=== PATIENT | female | born 1990 | race Caucasian/White ===

== ENCOUNTER 2016-11-01 13:22 | Emergency (ER) | payer OTHER ==
[~2016-11-01] VITALS: Ht 170.2 cm; Wt 77.0 kg
[2016-11-01 13:24] VITALS: Ht 170.2 cm; Wt 77.0 kg
[2016-11-01] MEDS ORDERED: morphine 4 MG/ML VIAL IV STA ×2 (13:45→15:11)
[2016-11-01] MEDS ORDERED: ONDANSETRON 4 MG INJ IV STA (13:45)
[2016-11-01 14:21] LABS: ADD SCAN DIFF NO
[2016-11-01 14:28] LABS: ADD UMIC YES; BASOPHILS % 0.4 % (0.0-2.0); EOSINOPHILS % 0.6 % (0.0-7.0); HEMATOCRIT 34.5 % (37.0-47.0); HEMOGLOBIN 12.1 g/dl (12.0-16.0); LYMPHOCYTES # 2.8 10^3/ul (0.8-2.9); LYMPHOCYTES % 40.7 % (15.0-51.0); MEAN CORPUSCULAR HEMOGLOBIN 29.1 pg (29.0-33.0); MEAN CORPUSCULAR HGB CONC 35.1 g/dl (32.0-37.0); MEAN CORPUSCULAR VOLUME 82.9 fl (82.0-101.0); MEAN PLATELET VOLUME 9.2 fl (7.4-10.4); MONOCYTE # 0.4 10^3/ul (0.3-0.9); MONOCYTES % 5.5 % (0.0-11.0); NEUTROPHIL # 3.6 10^3/ul (1.6-7.5); NEUTROPHILS % 52.5 % (39.0-77.0); PLATELET COUNT 311 10^3/UL (140-415); RED BLOOD COUNT 4.16 10^6/ul (4.20-5.40); URINE BILIRUBIN (Dip) NEGATIVE (NEGATIVE); URINE BLOOD (Dip) 3+ (NEGATIVE); URINE COLOR LT. RED (YELLOW); URINE GLUCOSE (Dip) NEGATIVE (NEGATIVE); URINE KETONES (Dip) NEGATIVE (NEGATIVE); URINE LEUKOCYTE ESTERASE (Dip) TRACE (NEGATIVE); URINE NITRITE (Dip) NEGATIVE (NEGATIVE); URINE TOTAL PROTEIN (Dip) NEGATIVE (NEGATIVE); URINE UROBILINOGEN (Dip) 0.2 E.U./dL (0.1-1.0); WHITE BLOOD COUNT 6.9 10^3/ul (4.8-10.8)
[2016-11-01 14:39] LABS: ALBUMIN/GLOBULIN RATIO 1.37; BILIRUBIN,INDIRECT 0.7 mg/dl (0-1.1); BILIRUBIN,TOTAL 0.7 mg/dl (0.2-1.3); CALCIUM 9.4 mg/dl (8.4-10.2); CREATININE 0.53 mg/dl (0.44-1.00); POTASSIUM 3.9 mmol/L (3.5-5.1); TOTAL PROTEIN 6.9 g/dl (6.1-8.1)
[2016-11-01 14:49] LABS: BACTERIA,URINE MANY; URINE RBCS >200 /HPF (0)
--- NOTE | 2016-11-01 15:12 | RADRPT ---
PROCEDURE: US Pelvis. CLINICAL INDICATION: Pelvic pain TECHNIQUE: Multiple sonographic images of the pelvis were obtained utilizing a transabdominal and endovaginal technique. The images were reviewed on a PACS workstation. COMPARISON: None. FINDINGS: The uterus is anteverted and measures 6.6 x 4.2 x 3.2 cm. The endometrial echo complex is normal and measures 7-mm. There is no evidence for free fluid. The right ovary has a normal echotexture and me asures 4.2 x 2.5 x 2.4 cm . An incidental 1 cm of ovarian dermoid may be present. The left ovary molina s a normal echotexture and measures 1.9 x 1.6 x 1.1 cm. No adnexal masses are noted. There are no findings of ovarian torsion. Normal follicular activity is present. IMPRESSION: Unremarkable exam. RPTAT: EE .Alyson Syed MD, Date Time Electronically viewed and signed by .Alyson Syed MD, on 11/01/2016 15:12 .F/
[2016-11-01 15:19] VITALS: BP 103/59; PULSE 66; RESP 20
[2016-11-01] MEDS ORDERED: KETOROLAC 30 MG INJ IV STA (15:21)
--- NOTE | 2016-11-01 16:10 | RADRPT ---
PROCEDURE: CT Abdomen and Pelvis without contrast. CLINICAL INDICATION: Abdominal pain TECHNIQUE: CT scan of the abdomen and pelvis was performed on a multidetector high-resolution CT s canner without intravenous contrast. Coronal and sagittal reformatted images were obtained from the axial source images. Images were reviewed on a high-resolution PACS workstation. The total exam CTD I equals 10mGy and the total exam DLP equals 595mGy-cm. One or more of the following dose reduction techniques were used: Automated exposure control, Adjustment of the mA and/or kV according to patien t size, and/or use of iterative reconstruction technique. COMPARISON: None. FINDINGS: Evaluation of the solid organs is limited given the lack of intravenous contrast administration. The lung bases are clear. The liver, pancreas, spleen, and adrenals are grossly unremarkable. No focal pericholecystic inflammatory changes. No hydronephrosis. Multiple nonobstructing right renal stones are seen with a largest measuring 5 m m. No left renal stones identified. No bowel obstruction. Normal-caliber appendix. No significant retroperitoneal lymphadenopathy or evidence of pneumoperitoneum. Small volume pelvic free fluid. IMPRESSION: Multiple nonobstructing right renal stones are seen with the largest measuring 5 mm. Small amount of pelvic free fluid. No evidence of bowel obstruction. Normal-caliber appendix. RPTAT: AA .Emil Harris MD, Date Time Electronically viewed and signed by .Emil Harris MD, on 11/01/2016 16:10 .T/
[2016-11-01] MEDS ORDERED: NAPR-260 PO (16:38)
[2016-11-01] MEDS ORDERED: CIPR500T4 PO (16:38)
[2016-11-01] MEDS ORDERED: TAMS-14 PO (16:38)
--- NOTE | 2016-11-01 17:25 | ERD ---
ER Documentation Chief Complaint Date/Time DATE: 11/01/16 TIME: 17:21 Chief Complaint sudden onset rlq abdominal pain since this morning, last lmp yesterday HPI 25-year-old female patient with no significant past medical history presents the ED complaining of right lower quadrant abdominal pain that started this morning. States that she has had a previous right ovarian cyst but this feels different and it feels like a stabbing type of pain. Reports that she is nauseous but denies any vomiting. States that she has normal daily bowel movements. Denies any diarrhea. Denies any chest pain, shortness of breath, wheezing. States that her last menses started last night. Reports that she has some slight dysuria but denies any urgency, frequency, hematuria. ROS All systems reviewed and are negative except as per history of present illness. Medications Home Meds Active Scripts Tamsulosin Hcl* (Flomax*) 0.4 Mg Cap.er.24h, 0.4 MG PO QPM, #10 CAP Prov:LEONELA BARR PA-C 11/01/16 Ciprofloxacin Hcl* (Ciprofloxacin Hcl*) 500 Mg Tablet, 500 MG PO BID for 7 Days , TAB Prov:LEONELA BARR PA-C 11/01/16 Naproxen* (Naprosyn*) 500 Mg Tablet, 500 MG PO BID Y for PAIN AND/OR INFLAMMATION, #30 TAB Prov:ELONELA BARR PA-C 11/01/16 Allergies Allergies: Coded Allergies: No Known Allergy (Unverified , 11/01/16) PMhx/Soc Medical and Surgical Hx: pt denies Medical Hx, pt denies Surgical Hx Hx Alcohol Use: Yes Hx Substance Use: No Hx Tobacco Use: No Smoking Status: Never smoker Physical Exam Vitals Vital Signs Date Time Temp Pulse Resp B/P Pulse Ox O2 Delivery O2 Flow Rate FiO2 11/01/16 15:19 66 20 103/59 Room Air 11/01/16 13:24 97.8 87 18 147/71 99 Physical Exam Const: Jev-sby-knhpriphr, well-nourished. In no acute distress. Head: Atraumatic, normocephalic Eyes: Normal Conjunctiva without injection. No purulent discharge. ENT: Normal external ear, nose. Moist oropharynx without tonsillar exudates. Non -erythematous pharynx. Uvula midline. No drooling. No trismus. Neck: No cervical midline tenderness. Full range of motion. No meningismus. No cervical lymphadenopathy. No JVD. Resp: Clear to auscultation bilaterally. No wheezing, rhonchi, rales, or crackles. No accessory muscle use. No retractions. Cardio: Regular rate and rhythm. No murmurs, rubs or gallops. Abd: Soft, diffuse tenderness of the right and left lower quadrants, non distended. Normal bowel sounds. No palpable masses. No rebound tenderness. No guarding. Negative McBurney's point. Negative psoas sign. Negative obturator sign. Skin: No petechiae or rashes Back: No midline tenderness. No CVA tenderness. Ext: No cyanosis, or edema. Neur: Awake and alert. Normal gait. Normal coordination. Psych: Normal Mood and Affect Result Diagram: 11/01/16 1357 11/01/16 1357 Results 24 hrs Laboratory Tests Test 11/01/16 13:57 White Blood Count 6.910^3/ul Red Blood Count 4.1610^6/ul Hemoglobin 12.1g/dl Hematocrit 34.5% Mean Corpuscular Volume 82.9fl Mean Corpuscular Hemoglobin 29.1pg Mean Corpuscular Hemoglobin Concent 35.1g/dl Red Cell Distribution Width 12.0% Platelet Count 34921^3/UL Mean Platelet Volume 9.2fl Neutrophils % 52.5% Lymphocytes % 40.7% Monocytes % 5.5% Eosinophils % 0.6% Basophils % 0.4% Nucleated Red Blood Cells % 0.0/100WBC Neutrophils # 3.610^3/ul Lymphocytes # 2.810^3/ul Monocytes # 0.410^3/ul Eosinophils # 0.010^3/ul Basophils # 0.010^3/ul Nucleated Red Blood Cells # 0.010^3/ul Urine Color LT. RED Urine Clarity CLEAR Urine pH 7.0 Urine Specific [place] 1.010 Urine Ketones NEGATIVE Urine Nitrite NEGATIVE Urine Bilirubin NEGATIVE Urine Urobilinogen 0.2 E.U./dL Urine Leukocyte Esterase TRACE Urine Microscopic RBC >200/HPF Urine Microscopic WBC >50/HPF Urine Epithelial Cells FEW Urine Bacteria MANY Urine Hemoglobin 3+ Urine Glucose NEGATIVE% Urine Total Protein NEGATIVE Sodium Level 139mmol/L Potassium Level 3.9mmol/L Chloride Level 107mmol/L Carbon Dioxide Level 23mmol/L Anion Gap 13 Blood Urea Nitrogen 9mg/dl Creatinine 0.53mg/dl Glucose Level 108mg/dl Calcium Level 9.4mg/dl Total Bilirubin 0.7mg/dl Direct Bilirubin 0.00mg/dl Indirect Bilirubin 0.7mg/dl Aspartate Amino Transf (AST/SGOT) 20IU/L Alanine Aminotransferase (ALT/SGPT) 27IU/L Alkaline Phosphatase 43IU/L Total Protein 6.9g/dl Albumin 4.0g/dl Globulin 2.90g/dl Albumin/Globulin Ratio 1.37 Lipase 82U/L Current Medications Medications (Trade) Dose Ordered Sig/Karon Route PRN Reason Start Time Stop Time Status Last Admin Dose Admin Morphine Sulfate (morphine) 4 mg ONCE STAT IV 11/01/16 13:45 11/01/16 13:50 DC 11/01/16 14:43 Ondansetron HCl (Zofran Inj) 4 mg ONCE STAT IV 11/01/16 13:45 11/01/16 13:50 DC 11/01/16 14:43 Morphine Sulfate (morphine) 3 mg ONCE STAT IV 11/01/16 15:11 11/01/16 15:12 Cancel Ketorolac Tromethamine (Toradol) 30 mg ONCE STAT IV 11/01/16 15:21 11/01/16 15:22 DC 11/01/16 15:31 Procedures/MDM This is a 25-year-old female patient with a past medical history of a right cystectomy presents to the ED complaining of diffuse lower abdominal pain associated with dysuria. Patient is afebrile and nontoxic-appearing. Patient has normal vital signs. Patient is in distress due to pain. Patient was further worked up with CBC, CMP, lipase, UA, urine , CT of abdomen and pelvis. Patient's pain and symptoms have improved after treatment with morphine , Ketoralac, normal saline, Zofran. CBC: No leukocytosis. No e/o of systemic infection. No e/o anemia. CMP: No e/o severe acidosis, alkalosis, renal failure, diabetic ketoacidosis, liver disease Lipase within normal limits. Urine: trace leukocyte esterase with > WBC 50, no nitrites, no hematuria. Urine : negative PROCEDURE: CT Abdomen and Pelvis without contrast. CLINICAL INDICATION: Abdominal pain TECHNIQUE: CT scan of the abdomen and pelvis was performed on a multidetector high-resolution CT scanner without intravenous contrast. Coronal and sagittal reformatted images were obtained from the axial source images. Images were reviewed on a high-resolution PACS workstation. The total exam CTDI equals 10mGy and the total exam DLP equals 595mGy-cm. One or more of the following dose reduction techniques were used: Automated exposure control, Adjustment of the mA and/or kV according to patient size, and/or use of iterative reconstruction technique. COMPARISON: None. FINDINGS: Evaluation of the solid organs is limited given the lack of intravenous contrast administration. The lung bases are clear. The liver, pancreas, spleen, and adrenals are grossly unremarkable. No focal pericholecystic inflammatory changes. No hydronephrosis. Multiple nonobstructing right renal stones are seen with a largest measuring 5 mm. No left renal stones identified. No bowel obstruction. Normal-caliber appendix. No significant retroperitoneal lymphadenopathy or evidence of pneumoperitoneum. Small volume pelvic free fluid. IMPRESSION: Multiple nonobstructing right renal stones are seen with the largest measuring 5 mm. Small amount of pelvic free fluid. No evidence of bowel obstruction. Normal-caliber appendix. PROCEDURE: US Pelvis. CLINICAL INDICATION: Pelvic pain TECHNIQUE: Multiple sonographic images of the pelvis were obtained utilizing a transabdominal and endovaginal technique. The images were reviewed on a PACS workstation. COMPARISON: None. FINDINGS: The uterus is anteverted and measures 6.6 x 4.2 x 3.2 cm. The endometrial echo complex is normal and measures 7-mm. There is no evidence for free fluid. The right ovary has a normal echotexture and measures 4.2 x 2.5 x 2.4 cm . An incidental 1 cm of ovarian dermoid may be present. The left ovary has a normal echotexture and measures 1.9 x 1.6 x 1.1 cm. No adnexal masses are noted. There are no findings of ovarian torsion. Normal follicular activity is present. IMPRESSION: Unremarkable exam. Patient was noted to have multiple kidney stones in her right kidney. Low suspicion for septic stone. A differential diagnosis considered includes but is not limited to gastritis, GERD, peptic ulcer disease, cholecystitis, choledocholithiasis, cholangitis, pancreatitis, appendicitis, bowel obstruction , ileus, volvulus, nephrolithiasis, pyelonephritis, hepatitis, perforated viscus , diverticulitis, abdominal hernia, acute abdomen, mesenteric ischemia or other emergent conditions. 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 Instructed patient to return to the ED sooner for any worsening symptoms. Patient's questions were answered. Patient understood and agreed with discharge plan. Patient discharged stable. Departure Diagnosis: Primary Impression: Kidney stone on right side Condition: Stable Patient Instructions: Urinary Tract Infections in Women, Kidney Stone W/ Colic Referrals: COMMUNITY CLINICS YOU HAVE RECEIVED A MEDICAL SCREENING EXAM AND THE RESULTS INDICATE THAT YOU DO NOT HAVE A CONDITION THAT REQUIRES URGENT TREATMENT IN THE EMERGENCY DEPARTMENT. FURTHER EVALUATION AND TREATMENT OF YOUR CONDITION CAN WAIT UNTIL YOU ARE SEEN IN YOUR DOCTORS OFFICE WITHIN THE NEXT 1-2 DAYS. IT IS YOUR RESPONSIBILITY TO MAKE AN APPOINTMENT FOR FOLOW-UP CARE. IF YOU HAVE A PRIMARY DOCTOR --you should call your primary doctor and schedule an appointment IF YOU DO NOT HAVE A PRIMARY DOCTOR YOU CAN CALL OUR PHYSICIAN REFERRAL HOTLINE AT IF YOU CAN NOT AFFORD TO SEE A PHYSICIAN YOU CAN CHOSE FROM THE FOLLOWING [facility] [address] [facility]. [facility] [address] [facility] [facility] [address] [facility] [facility] [address] [facility] [facility] [address] [facility]. [facility]. [address] [facility]. [facility] YOU HAVE RECEIVED A MEDICAL SCREENING EXAM AND THE RESULTS INDICATE THAT YOU DO NOT HAVE A CONDITION THAT REQUIRES URGENT TREATMENT IN THE EMERGENCY DEPARTMENT. FURTHER EVALUATION AND TREATMENT OF YOUR CONDITION CAN WAIT UNTIL YOU ARE SEEN IN YOUR DOCTORS OFFICE WITHIN THE NEXT 1-2 DAYS. IT IS YOUR RESPONSIBILITY TO MAKE AN APPOINTMENT FOR FOLOW-UP CARE. IF YOU HAVE A PRIMARY DOCTOR --you should call your primary doctor and schedule and appointment IF YOU DO NOT HAVE A PRIMARY DOCTOR YOU CAN CALL OUR PHYSICIAN REFERRAL HOTLINE AT . IF YOU CAN NOT AFFORD TO SEE A PHYSICIAN YOU CAN CHOSE FROM THE FOLLOWING [facility] INSTITUTIONS: [facility] [address] [place] [address] [facility] [address] [place] [address] [facility] [address] [place] [address] [facility] URGENT CARE/SPECIALTIES Additional Instructions: Call your primary care doctor TOMORROW for an appointment during the next 1-2 days.See the doctor sooner or return here if your condition worsens before your appointment time. LEONELA BARR PA-C November 01, 2016 17:25
== END 2016-11-01 17:43 | disposition home or self-care (01) ==
LOC: EDBD 13:22 → FTE 13:22
DX: N20.0 Calculus of kidney (principal); R11.0 Nausea; R10.2 Pelvic and perineal pain
CPT/HCPCS: 74176; 76830; 76856; 80053; 81001; 83690; 85025; J1885; J2270; J2405; 36415; 81003; 96374; 96375